=== PATIENT | male | born 1950 | race Caucasian/White ===

== ENCOUNTER 2016-09-13 03:08 | Observation (INO) | payer OTHER, MEDICAID ==
[2016-09-13] VITALS (9 sets, daily range): BP systolic 126–172; BP diastolic 60–92; PULSE 68–91; RESP 16–18; TEMP 98.5; Ht 162.6 cm; Wt 69.8 kg
[~2016-09-13] VITALS: Ht 162.6 cm; Wt 69.8 kg
[~2016-09-13 03:08] MED LIST: ASPI325T4 PO; ATEN-51 PO; BENA20TA48 PO; LORA-441 PO; METO25TA7 PO; OMEP20CA9 PO; ONDA4TAB35 PO; ONDA4TAB8 PO; RANI150T9 PO
[2016-09-13] MEDS ORDERED: SOD CHLORIDE 0.9% 500 ML IV STA (04:25)
[2016-09-13] MEDS ORDERED: TRAZ50TA18 PO (04:30)
[2016-09-13] MEDS ORDERED: ALPRAZOLAM 0.25 MG TAB PO ONE (04:30)
[2016-09-13] MEDS ORDERED: ALPR0.5T PO (04:30)
[2016-09-13 05:08] LABS: ADD SCAN DIFF NO
[2016-09-13 05:10] LABS: BASOPHIL # 0.1 10^3/ul (0.0-0.1); BASOPHILS % 0.8 % (0.0-2.0); EOSINOPHILS # 0.1 10^3/ul (0.0-0.5); EOSINOPHILS % 1.9 % (0.0-7.0); HEMATOCRIT 42.6 % (42.0-52.0); HEMOGLOBIN 14.9 g/dl (14.0-18.0); LYMPHOCYTES # 2.4 10^3/ul (0.8-2.9); LYMPHOCYTES % 36.3 % (15.0-51.0); MEAN CORPUSCULAR HEMOGLOBIN 30.5 pg (29.0-33.0); MEAN CORPUSCULAR VOLUME 87.3 fl (82.0-101.0); MEAN PLATELET VOLUME 11.3 fl (7.4-10.4); MONOCYTE # 0.6 10^3/ul (0.3-0.9); MONOCYTES % 8.8 % (0.0-11.0); NEUTROPHIL # 3.4 10^3/ul (1.6-7.5); PLATELET COUNT 207 10^3/UL (140-415); RED BLOOD COUNT 4.88 10^6/ul (4.70-6.10); RED CELL DISTRIBUTION WIDTH 12.7 % (11.5-14.5); WHITE BLOOD COUNT 6.5 10^3/ul (4.8-10.8)
[2016-09-13 05:12] LABS: ADD UMIC YES; UR BILIRUBIN (Dip) NEGATIVE (NEGATIVE); UR BLOOD (Dip) TRACE (NEGATIVE); UR CLARITY CLEAR (CLEAR); UR COLOR LT. YELLOW (YELLOW); UR GLUCOSE (Dip) NEGATIVE (NEGATIVE); UR KETONES (Dip) NEGATIVE (NEGATIVE); UR LEUKOCYTE ESTERASE (Dip) NEGATIVE (NEGATIVE); UR NITRITE (Dip) NEGATIVE (NEGATIVE); UR TOTAL PROTEIN (Dip) NEGATIVE (NEGATIVE); UR UROBILINOGEN (Dip) 0.2 E.U./dL (0.1-1.0)
[2016-09-13 05:23] LABS: UR SQUAMOUS EPITHELIAL CELL RARE; URINE RBCS 0-2 /HPF (0)
[2016-09-13 05:24] LABS: UR BACTERIA RARE
[2016-09-13 05:33] LABS: INR 1.01; PROTIME 13.3 Sec (12.2-14.2)
[2016-09-13 05:38] LABS: ANION GAP 16 (8-16); BLOOD UREA NITROGEN 11 mg/dl (7-20); CALCIUM 9.2 mg/dl (8.4-10.2); CARBON DIOXIDE 25 mmol/L (21-31); CHLORIDE 107 mmol/L (97-110); CREATININE 0.89 mg/dl (0.61-1.24); GLUCOSE 114 mg/dl (70-220); SODIUM 144 mmol/L (135-144)
[2016-09-13 05:55] LABS: TROPONIN-I < 0.012 ng/ml (0.00-0.12)
--- NOTE | 2016-09-13 06:04 | RADRPT ---
PROCEDURE: CT BRAIN WITHOUT CONTRAST CLINICAL INDICATION: 65-year-old male with right-sided numbness. TECHNIQUE: The study was performed utilizing Cognitive Code VCT 64-slice CT scanner. Direct axial sections were obtained from the foramen magnum to the vertex without the use of intravenous contrast material. Sagittal and coronal reformations were obtained. One or more the following dose reduction techniques were utilized: automated exposure control, adjustment of the mA and/or kV according to p atient's size or use of iterative reconstruction technique. The images were viewed on a PACS worksta tion. CTD/vol = 44.8 mGy; Total Exam DLP = 630.2 mGy-cm. COMPARISON: CT brain September 17, 2013. FINDINGS: There is mild degree of diffuse cortical and central atrophy with compensatory ventricular enlargeme nt. There is no evidence for mass effect or midline shift. There are periventricular and deep whit e matter areas of decreased density consistent with microangiopathic ischemic changes. There is a fo rodney area of encephalomalacia within the right superior frontal deep white matter on axial image 2-20 consistent with a prior infarct which was present previously. There has been interval development o f a old lacunar infarct within the left putamen on axial image 2-12. There is no evidence for acute intra or extra-axial blood. Calcifications are seen within the intracranial carotid arteries bilater ally. The bony calvarium is intact. The partially visualized paranasal sinuses and mastoid air cells are without significant abnormal soft tissue. IMPRESSION: 1. Mild diffuse atrophy. 2. Extensive microangiopathic ischemic changes. 3. Focal right frontal deep white matter infarct which was present previously. 4. Old left basal ganglia lacunar type infarct which has developed in the interval. 5. Vascular calcifications. .Ronnie Ward MD, MD Date Time Electronically viewed and signed by .Ronnie Ward MD, MD on 09/13/2016 06:04 .M/
--- NOTE | 2016-09-13 06:05 | RADRPT ---
PROCEDURE: CHEST - 1 VIEW CLINICAL INDICATION: 65-year-old male with change in mental status. TECHNIQUE: A single frontal AP portable view of the chest was performed. The images were reviewed on a PACS workstation. COMPARISON: Chest x-ray November 25, 2014. FINDINGS: The cardiomediastinal silhouette is within normal limits without significant interval change. The t horacic aortic arch is calcified with an ectatic descending thoracic aorta. Chronic lung changes ar e present. There is no evidence for an infiltrate. There is no evidence for congestive heart failu re. There is no evidence for pneumothorax. The osseous structures are intact. IMPRESSION: 1. Calcified thoracic aortic arch. 2. Chronic lung changes. .Ronnie Ward MD, MD Date Time Electronically viewed and signed by .Ronnie Ward MD, on 09/13/2016 06:05 .M/
[2016-09-13] MEDS ORDERED: ASPIRIN 325 MG TAB PO ONE (06:30)
--- NOTE | 2016-09-13 06:30 | ERA ---
ER Documentation Chief Complaint Date/Time DATE: 09/13/16 TIME: 06:27 Chief Complaint Right arm numbness, felt like it was asleep. HPI This 65-year-old male presents emergency room for sudden onset right arm numbness, right hand weakness and right leg weakness that made it difficult for him to walk lasting 20 minutes. Symptoms slowly resolved after that. He denies having any slurred speech or confusion at that time. He suffers from hypertension and cholesterolemia. He has no diabetes. Has not had fevers and chills recently. Denies chest pain and nausea per ROS All systems reviewed and are negative except as per history of present illness. Medications Home Meds Active Scripts Trazodone Hcl* (Trazodone Hcl*) 50 Mg Tablet, 50 MG PO QHS, #5 TAB Prov:NAOMYSIDNEYNELSON DO 09/13/16 Alprazolam* (Xanax*) 0.5 Mg Tab, 0.5 MG PO QHS Y for INSOMNIA, #10 TAB Prov:NAOMYNELSON DO 09/13/16 Ondansetron Hcl* (Zofran* ODT) 4 mg -ODT Tab.disper, 4 MG PO Q8 Y for NAUSEA AND /OR VOMITING, #30 TAB Prov:DREW GARCÍA ESTATE ADMINISTRATOR 11/12/15 Omeprazole* (Prilosec*) 20 Mg Capsule.dr, 20 MG PO DAILY, #30 CAP Prov:DREW GARCÍA NP 11/12/15 Ondansetron Hcl* (Zofran*) 4 Mg Tablet, 4 MG PO Q8H Y for NAUSEA AND/OR VOMITING , #10 TAB Prov:KHALIF POOLE 03/29/15 Ranitidine Hcl* (Zantac*) 150 Mg Tablet, 150 MG PO BID Y for GASTROINTESTINAL UPSET, #30 TAB Prov:KHALIF POOLE 03/29/15 Lorazepam* (Ativan*) 0.5 Mg Tablet, 0.5 MG PO Q8H Y for ANXIETY, #10 TAB Prov:STAN DAWKINS DO 11/25/14 Aspirin* (Aspirin*) 325 Mg Tablet, 325 MG PO DAILY, #30 TAB Prov:SATN DAWKINS DO 11/25/14 Reported Medications Metoprolol Succinate* (Toprol XL*) 25 Mg Tab.sr.24h, 25 MG PO DAILY, #60 03/29/15 Benazepril Hcl* (Benazepril Hcl*) 20 Mg Tablet, 20 MG PO DAILY, #60 03/29/15 Atenolol* (Atenolol*) 25 Mg Tablet, 25 MG PO DAILY, TAB 11/25/14 Allergies Allergies: Coded Allergies: No Known Allergy (Unverified , 09/12/13) PMhx/Soc History of Surgery: No Anesthesia Reaction: No Hx Neurological Disorder: No Hx Respiratory Disorders: No Hx Cardiac Disorders: Yes (HTN) Hx Psychiatric Problems: No Hx Miscellaneous Medical Probl: No Hx Alcohol Use: No Hx Substance Use: No Hx Tobacco Use: No Smoking Status: Never smoker Physical Exam Vitals Vital Signs Date Time Temp Pulse Resp B/P Pulse Ox O2 Delivery O2 Flow Rate FiO2 09/13/16 05:49 62 20 144/92 98 Room Air 09/13/16 03:15 98.2 91 18 178/98 98 Physical Exam Const: [] No distress Head: Atraumatic Eyes: Normal Conjunctiva, PRL, EOMI ENT: Normal External Ears, Nose and Mouth. Neck: Full range of motion..~ No meningismus. Resp: Clear to auscultation bilaterally Cardio: Regular rate and rhythm, no murmurs Abd: Soft, non tender, non distended. Normal bowel sounds Skin: No petechiae or rashes Back: No midline or flank tenderness Ext: No cyanosis, or edema Neur: Awake and alert and oriented 3, cranial nerves II through XII intact, no cerebellar deficits, normal gait. NIH equals 0 Psych: Normal Mood and Affect Result Diagram: 09/13/1644609/13/16446 Results 24 hrs Laboratory Tests Test 09/13/16 04:44 09/13/16 04:47 Bedside Glucose 109mg/dL White Blood Count 6.510^3/ul Red Blood Count 4.8810^6/ul Hemoglobin 14.9g/dl Hematocrit 42.6% Mean Corpuscular Volume 87.3fl Mean Corpuscular Hemoglobin 30.5pg Mean Corpuscular Hemoglobin Concent 35.0g/dl Red Cell Distribution Width 12.7% Platelet Count 85536^3/UL Mean Platelet Volume 11.3fl Neutrophils % 52.0% Lymphocytes % 36.3% Monocytes % 8.8% Eosinophils % 1.9% Basophils % 0.8% Nucleated Red Blood Cells % 0.0/100WBC Neutrophils # 3.410^3/ul Lymphocytes # 2.410^3/ul Monocytes # 0.610^3/ul Eosinophils # 0.110^3/ul Basophils # 0.110^3/ul Nucleated Red Blood Cells # 0.010^3/ul Prothrombin Time 13.3Sec Prothrombin Time Ratio 1.0 INR International Normalized Ratio 1.01 Activated Partial Thromboplast Time Pending Urine Color LT. YELLOW Urine Clarity CLEAR Urine pH 5.5 Urine Specific [place] 1.015 Urine Ketones NEGATIVE Urine Nitrite NEGATIVE Urine Bilirubin NEGATIVE Urine Urobilinogen 0.2 E.U./dL Urine Leukocyte Esterase NEGATIVE Urine Microscopic RBC 0-2/HPF Urine Microscopic WBC 0-2/HPF Urine Squamous Epithelial Cells RARE Urine Bacteria RARE Urine Hemoglobin TRACE Urine Glucose NEGATIVE% Urine Total Protein NEGATIVE Sodium Level 144mmol/L Potassium Level 4.0mmol/L Chloride Level 107mmol/L Carbon Dioxide Level 25mmol/L Anion Gap 16 Blood Urea Nitrogen 11mg/dl Creatinine 0.89mg/dl Glucose Level 114mg/dl Calcium Level 9.2mg/dl Troponin I < 0.012ng/ml Current Medications Medications (Trade) Dose Ordered Sig/Saleem Route PRN Reason Start Time Stop Time Status Last Admin Dose Admin Sodium Chloride (NS) 500 ml @ 500 mls/hr Q1H STAT IV 09/13/16 04:25 09/13/16 05:24 DC 09/13/16 05:07 Alprazolam (Xanax) 0.25 mg ONCE ONCE PO 09/13/16 04:30 09/13/16 04:31 DC 09/13/16 05:06 Procedures/MDM Symptoms concerning for a TIA in a patient has 2 prior strokes on his CAT scan. Stable in the emergency room. He was given 325 mg aspirin on his CAT scan returned with no hemorrhage. Vital signs otherwise stable in the emergency room. Going to be admitted to telemetry for further monitoring, likely neurological consult and MRI. Dr. valle is admitting. Registration was unable to find patient's insurance after calling multiple places and decided he should be admitted to panel. EKG interpretation: Normal sinus rhythm, rate of 79, normal axis, no ST or T- wave changes concerning for acute ischemia, normal intervals, nonspecific T- wave abnormality. quality assurance monitor interpretation: Normal sinus rhythm without arrhythmia Chest x-ray interpretation: I see no acute process, no widened mediastinum, no pulmonary edema, no pneumothorax, no fractures Head CT interpretation: Evidence of 2 prior strokes with no current hemorrhage, no mass-effect no midline shift no skull fracture. Departure Diagnosis: Primary Impression: Transient ischemic attack Condition: Stable NELSON MORALEZ DO Sep 13, 2016 06:30
[2016-09-13] MEDS ORDERED: LORAZEPAM 2 MG INJ IV PRN (07:00)
[2016-09-13] MEDS ORDERED: SOD CHLORIDE 0.9% 1,000 ML IV SCH (08:50)
[2016-09-13] MEDS ORDERED: ONDANSETRON 4 MG INJ IV PRN ×2 (09:00→12:00)
[2016-09-13] MEDS ORDERED: ACETAMINOPHEN 325 MG TAB PO PRN ×2 (09:00→12:00)
[2016-09-13] MEDS ORDERED: morphine 2 MG INJ IV PRN (12:00)
[2016-09-13] MEDS ORDERED: DOCUSATE SODIUM 100 MG CAP PO PRN (12:00)
[2016-09-13] MEDS ORDERED: NACL 0.9% 3 ML SYG IV SCH (12:00)
[2016-09-13] MEDS ORDERED: ZOLPIDEM 5 MG TAB PO PRN (12:00)
[2016-09-13] MEDS ORDERED: hydrALAzine 20 MG INJ IV PRN (12:00)
[2016-09-13] MEDS ORDERED: HYDROCODONE/APAP (5/325) TAB PO PRN (12:00)
[2016-09-13] MEDS: LISINOPRIL 10 MG TAB PO SCH (12:51)
--- NOTE | 2016-09-13 14:05 | HP ---
DATE OF ADMISSION: 09/13/2016 CHIEF COMPLAINT: Right arm numbness. HISTORY OF PRESENT ILLNESS: The patient is a 65-year-old male with a history of hypertension, but n ot on any medications. The patient presents with 10 minutes of numbness in his right arm, states th at his whole arm felt weak once he got out of bed. He states that this has never happened before in the past. He does state that he suffers from insomnia and he currently denies any numbness or weak ness. He denies having any weakness at any point. The patient has no other complaints at this time . PAST MEDICAL HISTORY: Hypertension, not on any medications, and insomnia. PAST SURGICAL HISTORY: Denies. HOME MEDICATIONS: NO KNOWN DRUG ALLERGIES. FAMILY HISTORY: Diabetes. SOCIAL HISTORY: Denies any alcohol, tobacco, or drug abuse. REVIEW OF SYSTEMS: A 12-point review of systems negative except as in HPI. PHYSICAL EXAMINATION: VITAL SIGNS: Temperature is 98.5, pulse 78, respiration is 18, BP is 130/89, saturation 99% on room air. GENERAL: No acute distress, alert and oriented. HEENT: Normocephalic, atraumatic. Pupils equal, round, reactive to light. LUNGS: Clear to auscultation. CARDIOVASCULAR: Regular rate and rhythm. ABDOMEN: Nondistended, nontender, soft. EXTREMITIES: No clubbing, cyanosis, or edema. NEUROLOGIC: No focal deficits noted. LABORATORIES: CBC is within normal limits. Chemistry within normal limits. A1c is 6.4. Troponins are negative. INR is 1.01. UA is within normal limits. DIAGNOSTICS: Chest x-ray shows calcified thoracic aortic arch, chronic lung changes. Brain CT show s mild diffuse atrophy, extensive microangiopathic ischemic changes, focal right frontal deep white matter infarct which was present previously, old left basal ganglia lacunar type infarct which has d eveloped an interval and vascular calcifications. ASSESSMENT AND PLAN: 1. Acute right arm numbness, likely secondary to a new lacunar infarct within the left basal gangli a. 2. Patient's symptoms of right arm numbness have now resolved, lacunar infarct. Etiology is likely secondary to uncontrolled hypertension. The patient's blood pressure is now rising in house. Will start the patient on p.o. blood pressure medications. Will titrate up as needed. 3. History of cerebrovascular accident. The patient did not report any CVA during history, but the patient has a right-sided infarct noted on CT which was noted on the previous CT of the brain. The patient has no reported residual weakness. 4. Hypertension. Once again, patient is not taking any medications, and he needs to be started on medications while in house as his BP is climbing. Will start the patient on lisinopril and titrate up as needed. 5. Prediabetes. The patient's A1c is 6.4. Lifestyle changes will be advised. 6. Prophylaxis. Lovenox. Dictated By: JOSE LEON MD BS/NTS Conf#: [id number] DID#: [id number]
--- NOTE | 2016-09-13 14:13 | RADRPT ---
PROCEDURE: US Carotids. CLINICAL INDICATION: bruit , CVA TECHNIQUE: Multiple sonographic of the carotid bifurcation region and vertebral arteries were obta ined utilizing hardin scale, duplex and color-flow imaging. The images were reviewed on a PACS worksta tion. COMPARISON: No prior studies are available for comparison. FINDINGS: Evaluation of the right carotid bifurcation region reveals mild calcific atherosclerotic disease. Evaluation of the left carotid bifurcation region reveals mild calcific atherosclerotic disease. The bilateral subclavian arteries are patent with normal wave forms. There is antegrade flow within the vertebral arteries bilaterally. RIGHT CAROTID MEASUREMENTS: Common Carotid Gnshpd95.2 (cm/sec) Internal Carotid Artery - gzurugqk46.4 (cm/sec) Internal Carotid Artery - mid38.2 (cm/sec) Internal Carotid Artery - eweodb15 (cm/sec) Internal Carotid/Common Carotid0.97 LEFT CAROTID MEASUREMENTS: Common Carotid Ppioko90.8 (cm/sec) Internal Carotid Artery - fupfxfcz41.9 (cm/sec) Internal Carotid Artery - mid38.1 (cm/sec) Internal Carotid Artery - rovben07.6 (cm/sec) Internal Carotid/Common Carotid1.26 RPTAT: AA IMPRESSION: No evidence for hemodynamically significant stenosis in the bilateral internal carotid arteries - va lidated velocity measurements with angiographic measurements, velocity criteria are extrapolated fro m diameter data as defined by the Society of Radiologists in Ultrasound Consensus Conference Radiolo gy 2003; 229;340-346. This study does indirectly reference the measurement of the distal ICA diamet er as the denominator for stenosis measurement. Normal antegrade flow in the vertebral arteries bilaterally. .Rogers Fisher MD, Date Time Electronically viewed and signed by .Rogers Fisher MD, MD on 09/13/2016 14:13 .S/
--- NOTE | 2016-09-13 15:42 | CONS ---
Date/Time of Note Date/Time of Note DATE: 09/13/16 TIME: 15:37 Assessment/Plan Assessment/Plan Chief Complaint/Hosp Course 65 yo male with history of HTN not previously on meds admitted with left arm numbness resolved, admitted for work up lacunar infarction. recommend: MRI Brain without contrast, MRA Head without contrast ASA 81 mg maintain normotension SBP<130/80 for lacunar type strokes check FLP HBA1C for optimization of secondary risk factors carotid duplex is negative ECHO w bubble study DVT ppx no PT/OT needs at this time Problems: Consultation Date/Type/Reason Admit Date/Time Sep 13, 2016 at 08:51 Date of Consultation: Sep 13, 2016 Type of Consultation: Neurology Reason for Consultation CVA Referring Provider: JOSE LEON of Present Illness 65 yo male with history of hypertension not on medications, prior admission for ETOH abuse admitted with 10 mins of numbness in right arm and sensation of weakness. Since admission he reports improvement, denies visual issues, no facial droop or dysarthria, no difficulty with coordination or ambulation. Symptoms have now resolved. CTH shows diffuse atrophy, ischemic changes, focal right white matter infarct, old basal ganglia infarct on left no complaints Social History Smoking Status: Never smoker Exam/Review of Systems Vital Signs Vitals Vital Signs Date Time Temp Pulse Resp B/P Pulse Ox O2 Delivery O2 Flow Rate FiO2 09/13/16 15:31 126/60 09/13/16 12:12 68 09/13/16 11:55 98.4 18 96 09/13/16 10:59 Room Air Exam Constitutional: alert, oriented, well developed Psych: no complaints Head: atraumatic, normocephalic Neurological: DIRECTOR OF STUDENT AFFAIRS II-XII intact, DTR's symmetric, nl mental status, nl speech, nl strength Results Result Diagram: 09/13/167 09/13/16446 Results 24 hrs Laboratory Tests Test 09/13/16 04:44 09/13/16 04:47 Bedside Glucose 109 White Blood Count 6.5 Red Blood Count 4.88 Hemoglobin 14.9 Hematocrit 42.6 Mean Corpuscular Volume 87.3 Mean Corpuscular Hemoglobin 30.5 Mean Corpuscular Hemoglobin Concent 35.0 Red Cell Distribution Width 12.7 Platelet Count 207 Mean Platelet Volume 11.3 #H Neutrophils % 52.0 Lymphocytes % 36.3 Monocytes % 8.8 Eosinophils % 1.9 Basophils % 0.8 Nucleated Red Blood Cells % 0.0 Neutrophils # 3.4 Lymphocytes # 2.4 Monocytes # 0.6 Eosinophils # 0.1 Basophils # 0.1 Nucleated Red Blood Cells # 0.0 Prothrombin Time 13.3 Prothrombin Time Ratio 1.0 INR International Normalized Ratio 1.01 Activated Partial Thromboplast Time 30.0 Urine Color LT. YELLOW Urine Clarity CLEAR Urine pH 5.5 Urine Specific [place] 1.015 Urine Ketones NEGATIVE Urine Nitrite NEGATIVE Urine Bilirubin NEGATIVE Urine Urobilinogen 0.2 E.U./dL Urine Leukocyte Esterase NEGATIVE Urine Microscopic RBC 0-2 Urine Microscopic WBC 0-2 Urine Squamous Epithelial Cells RARE Urine Bacteria RARE Urine Hemoglobin TRACE Urine Glucose NEGATIVE Urine Total Protein NEGATIVE Sodium Level 144 Potassium Level 4.0 Chloride Level 107 Carbon Dioxide Level 25 Anion Gap 16 Blood Urea Nitrogen 11 Creatinine 0.89 Glucose Level 114 Hemoglobin A1c 6.4 H Calcium Level 9.2 Troponin I < 0.012 Medications Medications Current Medications Lorazepam 2 mg 2 mg PRN PRN IV MRI phobia; Start 09/13/16 at 07:00 Sodium Chloride (NS) 1,000 ml @ 80 mls/hr [id number] IV ; Start 09/13/16 at 08:50 ; Stop 09/13/16 at 21:19 Ondansetron HCl (Zofran Inj) 4 mg Q6H PRN IV NAUSEA AND/OR VOMITING; Start 02/19 at 12:00 Acetaminophen (Tylenol Tab) 650 mg Q6H PRN PO PAIN LEVEL 1-3 OR FEVER; Start at 12:00 Acetaminophen/ Hydrocodone Bitart ([place] (5/325)) 1 tab Q6H PRN PO MODERATE PAIN LEVEL 4-6; Start 09/13/16 at 12:00 Morphine Sulfate (morphine) 2 mg Q4H PRN IV SEVERE PAIN LEVEL 7-10; Start 09/13 at 12:00 Docusate Sodium (Colace) 100 mg Q12H PRN PO CONSTIPATION; Start 09/13/16 at 12: 00 Zolpidem Tartrate (Ambien) 5 mg QHS PRN PO SLEEP; Start 09/13/16 at 12:00 Enoxaparin Sodium (Lovenox) 40 mg DAILY SC ; Start 09/14/16 at 09:00 Lisinopril (Zestril) 10 mg DAILY PO Last administered on 09/13/16 12:51; Admin Dose 10 MG; Start 09/13/16 at 12:00 Hydralazine HCl (Apresoline) 10 mg Q4H PRN IV SBP>170 Last administered on 09/13 13:46; Admin Dose 10 MG; Start 09/13/16 at 12:00 Trazodone HCl (Desyrel) 50 mg QHS PO ; Start 09/13/16 at 21:00 LEONOR MOSHER MD Sep 13, 2016 15:42
--- NOTE | 2016-09-13 17:01 | RADRPT ---
PROCEDURE: MR Brain noncontrast. CLINICAL INDICATION: Stroke. TECHNIQUE: Multiplanar multisequence noncontrast MRI of the brain was performed. COMPARISON: Noncontrast CT of the head from September 13, 2016. FINDINGS: There is minimal generalized cerebral volume loss. There are extensive periventricular scattered bilateral subcortical T2 hyperintensities suggesting c hronic microvascular ischemic changes. There is a small chronic right frontal centrum semiovale lacu socorro infarction. There is a chronic left basal ganglia lacunar infarction. There is no acute infarction. There is no intracranial hemorrhage or extra-axial fluid collection. There is no mass effect. There is no midline shift. The brainstem is within normal limits. The posterior fossa is unremarkable. The normal intracranial, intravascular flow voids are preserved. The visualized paranasal sinuses are well aerated. The orbits are grossly unremarkable. There is no destructive osseous lesion. IMPRESSION: 1. No acute infarction or intracranial hemorrhage. 2. Advanced chronic microvascular ischemic changes. 3. Minimal generalized cerebral volume loss. 4. Small chronic right frontal centrum semiovale lacunar infarction. 5. Chronic left basal ganglial lacunar infarction. Further findings as detailed above. RPTAT: HVF .Adriano Machado MD, MD Date Time Electronically viewed and signed by .Adriano Machado MD, on 09/13/2016 17:01 .F/
--- NOTE | 2016-09-13 18:01 | RADRPT ---
PROCEDURE: MRA Head noncontrast. CLINICAL INDICATION: Stroke. TECHNIQUE: MRA of the head was performed with 3-D [id number] technique without contrast. MIP r econstructions were provided. COMPARISON: There are no similar studies submitted for comparison. MRI of the brain from the same d ay. FINDINGS: Evaluation is moderately limited due to motion degradation. Carotid arteries: Patent bilaterally without evidence of stenosis. Anterior cerebral arteries: Patent bilaterally without evidence of stenosis. Middle cerebral arteries: There is apparent severe multifocal left M1 middle cerebral artery stenosi s however evaluation is limited due to motion. There is no definite right middle cerebral artery st enosis. Posterior cerebral arteries: Patent bilaterally without evidence of stenosis. Anterior communicating artery: Present. Posterior communicating arteries: Not visualized bilaterally. Basilar artery: Patent without evidence of stenosis. Vertebral arteries: Patent bilaterally without evidence of stenosis. Vertebral artery dominance: Left. Aneurysm: No aneurysm is identified. IMPRESSION: Evaluation is moderately limited due to motion degradation. 1. Apparent severe multifocal left M1 middle cerebral artery stenosis however evaluation is limited due to motion. This could be confirmed with CTA of the head as clinically warranted given limitatio ns. 2. No definite evidence of aneurysm given limitations. Further findings as detailed above. RPTAT: HVF .Adriano Machado MD, MD Date Time Electronically viewed and signed by .Adriano Machado MD, on 09/13/2016 18:01 .F/
[2016-09-13] MEDS ORDERED: traZODone 50 MG TAB PO SCH (21:00)
[2016-09-14] VITALS (8 sets, daily range): BP systolic 107–140; BP diastolic 65–83; PULSE 67–84; RESP 16–19
[2016-09-14 05:43] LABS: ADD SCAN DIFF NO
[2016-09-14 06:03] LABS: BASOPHIL # 0.1 10^3/ul (0.0-0.1); BASOPHILS % 0.8 % (0.0-2.0); EOSINOPHILS # 0.1 10^3/ul (0.0-0.5); EOSINOPHILS % 1.7 % (0.0-7.0); HEMATOCRIT 42.6 % (42.0-52.0); HEMOGLOBIN 14.6 g/dl (14.0-18.0); LYMPHOCYTES # 2.6 10^3/ul (0.8-2.9); MEAN CORPUSCULAR HEMOGLOBIN 30.1 pg (29.0-33.0); MEAN CORPUSCULAR HGB CONC 34.3 g/dl (32.0-37.0); MEAN CORPUSCULAR VOLUME 87.8 fl (82.0-101.0); MEAN PLATELET VOLUME 11.6 fl (7.4-10.4); MONOCYTE # 0.6 10^3/ul (0.3-0.9); MONOCYTES % 7.8 % (0.0-11.0); NEUTROPHIL # 4.2 10^3/ul (1.6-7.5); NEUTROPHILS % 55.6 % (39.0-77.0); PLATELET COUNT 190 10^3/UL (140-415); RED BLOOD COUNT 4.85 10^6/ul (4.70-6.10); RED CELL DISTRIBUTION WIDTH 13.2 % (11.5-14.5); WHITE BLOOD COUNT 7.5 10^3/ul (4.8-10.8)
[2016-09-14 06:35] LABS: CHOL/HDL RATIO 4.5 RATIO; CREATININE 1.1 mg/dl (0.61-1.24); MAGNESIUM 2.2 mg/dl (1.7-2.5); PHOSPHORUS 4.3 mg/dl (2.5-4.9); POTASSIUM 4.1 mmol/L (3.5-5.1)
[2016-09-14 07:04] LABS: T3 UPTAKE 36.1 % (23.5-40.5)
[2016-09-14] MEDS: LISINOPRIL 10 MG TAB PO SCH (08:14)
[2016-09-14] MEDS ORDERED: ENOXAPARIN 40 MG/0.4 ML SYG SC SCH (09:00)
[2016-09-14] MEDS ORDERED: ASPIRIN (EC) 81 MG TAB PO SCH (09:00)
--- NOTE | 2016-09-14 12:30 | CONS ---
Date/Time of Note Date/Time of Note DATE: 09/14/16 TIME: 12:26 Consult Date/Type/Reason Admit Date/Time Sep 13, 2016 at 08:51 Initial Consult Date 09/13/16 Type of Consultation: Neurology Reason for Consultation left arm numbness Ordering Provider: JOSE LEON Subjective no complaints worked with PT well this am MRI negative for acute infarction suggestive of Left M1 stenosis Objective Vital Signs Date Time Temp Pulse Resp B/P Pulse Ox O2 Delivery O2 Flow Rate FiO2 09/14/16 12:15 69 09/14/16 11:58 98.0 17 116/76 97 09/13/16 10:59 Room Air Intake and Output 09/13/16 09/13/16 09/14/16 15:00 23:00 07:00 Intake Total 240 ml Balance 240 ml Results/Medications Result Diagram: 09/14/16 0520 09/14/16 0520 Results 24 hrs Laboratory Tests Test 09/14/16 05:20 White Blood Count 7.5 Red Blood Count 4.85 Hemoglobin 14.6 Hematocrit 42.6 Mean Corpuscular Volume 87.8 Mean Corpuscular Hemoglobin 30.1 Mean Corpuscular Hemoglobin Concent 34.3 Red Cell Distribution Width 13.2 Platelet Count 190 Mean Platelet Volume 11.6 H Neutrophils % 55.6 Lymphocytes % 34.0 Monocytes % 7.8 Eosinophils % 1.7 Basophils % 0.8 Nucleated Red Blood Cells % 0.0 Neutrophils # 4.2 Lymphocytes # 2.6 Monocytes # 0.6 Eosinophils # 0.1 Basophils # 0.1 Nucleated Red Blood Cells # 0.0 Sodium Level 141 Potassium Level 4.1 Chloride Level 111 H Carbon Dioxide Level 22 Anion Gap 12 Blood Urea Nitrogen 16 Creatinine 1.10 Glucose Level 119 Calcium Level 9.0 Phosphorus Level 4.3 Magnesium Level 2.2 Triglycerides Level 176 H Cholesterol Level 171 LDL Cholesterol, Calculated 98 HDL Cholesterol 38 Cholesterol/HDL Ratio 4.5 Free Thyroxine Index 3.07 Thyroxine (T4) 8.5 Triiodothyronine (T3) Uptake 36.1 Medications Current Medications Lorazepam (Ativan) 2 mg PRN PRN IV MRI phobia Last administered on 09/13/16t 16 :17; Admin Dose 2 MG; Start 09/13/16 at 07:00 Ondansetron HCl (Zofran Inj) 4 mg Q6H PRN IV NAUSEA AND/OR VOMITING; Start 02/19 at 12:00 Acetaminophen (Tylenol Tab) 650 mg Q6H PRN PO PAIN LEVEL 1-3 OR FEVER; Start at 12:00 Acetaminophen/ Hydrocodone Bitart ([place] (5/325)) 1 tab Q6H PRN PO MODERATE PAIN LEVEL 4-6; Start 09/13/16 at 12:00 Morphine Sulfate (morphine) 2 mg Q4H PRN IV SEVERE PAIN LEVEL 7-10; Start 09/13 at 12:00 Docusate Sodium (Colace) 100 mg Q12H PRN PO CONSTIPATION; Start 09/13/16 at 12: 00 Zolpidem Tartrate (Ambien) 5 mg QHS PRN PO SLEEP; Start 09/13/16 at 12:00 Enoxaparin Sodium (Lovenox) 40 mg DAILY SC Last administered on 09/14/16 08:19 ; Admin Dose 40 MG; Start 09/14/16 at 09:00 Lisinopril (Zestril) 10 mg DAILY PO Last administered on 09/14/16 08:14; Admin Dose 10 MG; Start 09/13/16 at 12:00 Hydralazine HCl (Apresoline) 10 mg Q4H PRN IV SBP>170 Last administered on 09/13 13:46; Admin Dose 10 MG; Start 09/13/16 at 12:00 Trazodone HCl (Desyrel) 50 mg QHS PO Last administered on 09/13/16 21:47; Admin Dose 50 MG; Start 09/13/16 at 21:00 Aspirin (Halfprin) 81 mg DAILY PO Last administered on 09/14/16 09:11; Admin Dose 81 MG; Start 09/14/16 at 09:00 Atorvastatin Calcium (Lipitor) 80 mg HS PO ; Start 09/14/16 at 21:00 Assessment/Plan Chief Complaint/Hosp Course 65 yo male with history of HTN not previously on meds admitted with left arm numbness resolved, admitted for work up lacunar infarction. recommend: MRI Brain shows chronic infarcts, MRA Head suggestive of Left MCA stenosis ASA 81 mg will also add Plavix 75 mg daily for suspected intracranial atherosclerosis recommend continue on dual antiplatelet for total of 90 days then continue Plavix 75 mg daily after maintain normotension SBP<130/80 for lacunar type strokes Lipitor 40 mg daily HBA1C at goal DVT ppx no PT/OT needs at this time dc planning and outpatient neurology follow up Problems: LEONOR MOSHER MD Sep 14, 2016 12:30
--- NOTE | 2016-09-14 17:01 | RADRPT ---
Echocardiogram Report Patient Name: VIVIANE HURST Gender: Male Date: 1950 Study Date: 14-Sep-2016 Dietitian Research: Guillaume Mitchell [facility] Location: [id number] Ref. Physician: JOSE LEON Quality: Good Procedures: Transthoracic echocardiogram with complete 2D, M-Mode, and doppler examination. Indications: Cerebrovascular Accident. 2D/M Mode Doppler Measurement Value Normal Ranges Measurement Value Normal Ranges LVIDd 2D 4.7 3.5 - 5.6 cm AV Peak Doc 1.5 m/sec LVIDs 2D 2.5 2.1 - 4.1 cm AV Peak PG 9.0 mmHg FS 2D 46.4 % AI Peak PG 38.0 mmHg LVPWd 2D 1.1 0.6 - 1.1 cm AI Peak Doc 3.1 m/sec IVSd 2D 1.3 0.6 - 1.1 cm AI PHT 652.0 msec IVS/LVPW 2D 1.2 LVOT Peak Doc 0.7 m/sec AoR Diam 2D 3.3 2.0 - 3.7 cm LVOT Peak PG 2.0 mmHg LA/Ao 2D 1 0 - 1 MV E Peak Doc 0.5 m/sec EDV 2D 106.0 cm3 MV A Peak Doc 0.7 m/sec ESV 2D 16.4 cm3 MV E/A 0.7 LA Dimen 2D 3.8 2.3 - 4.0 cm MV Decel Time 211 msec MV E/A 0.7 TR Peak Doc 2.5 m/sec TR Peak PG 24.0 mmHg RVSP 32.0 mmHg Findings Left Ventricle: Normal left ventricular systolic function. Normal left ventricular cavity size. Mild concentric left ventricular hypertrophy. Ejection fraction is visually estimated at 60 %. Tissue Doppler/Mitral Doppler indices are consistent with impaired relaxation (Stage I diastolic dysfunction). Right Ventricle: Normal right ventricular size. Normal right ventricular systolic function. Left Atrium: The left atrium is normal in size. Right Atrium: The right atrium is normal in size. Mitral Valve: Normal appearance of the mitral valve. Mild mitral annular calcification. Trace mitral regurgitation. Aortic Valve: No significant aortic stenosis or insufficiency. Aortic cusps appear mildly calcified. Tricuspid Valve: Normal appearance of the tricuspid valve. Estimated peak PA systolic pressure 32 mmHg. There is mild tricuspid regurgitation. Pulmonic Valve: Normal pulmonic valve appearance. Pericardium: Normal pericardium with no significant pericardial effusion. Aorta: Normal aortic root. IVC: Normal size and no respiratory collapse consistent with elevated right atrial pressure. Conclusions 1.Normal left ventricular systolic function. Normal left ventricular cavity size. Mild concentric left ventricular hypertrophy. Ejection fraction is visually estimated at 60 %. Tissue Doppler/Mitral Doppler indices are consistent with impaired relaxation (Stage I diastolic dysfunction). 2.Normal appearance of the mitral valve. Mild mitral annular calcification. Trace mitral regurgitation. 3.Normal appearance of the tricuspid valve. Estimated peak PA systolic pressure 32 mmHg. There is mild tricuspid regurgitation. Electronically Signed By: Christian Alfaro 14-Sep-2016 17:00:51 -[id number] Patient Name: VIVIANE HURST Study Date: 14-Sep-[id number]
--- NOTE | 2016-09-14 17:14 | PDOCDIS ---
Discharge Instructions DIAGNOSIS Discharge Diagnosis: stroke CONDITION Patient Condition: Good HOME CARE INSTRUCTIONS: Diet Instructions: Low Fat /Cholesterol ACTIVITY: Activity Restrictions: Slowly Increase Activity FOLLOW UP/APPOINTMENTS Appointments Please schedule an appointment to see your regular doctor within 7 days for follow up and to discuss a referral for a sleep study Please schedule an appointment with the neurologist/stroke doctors who saw you in the hospital. TAZ MENDIOLA MD Sep 14, 2016 17:14
[2016-09-14] MEDS ORDERED: CLOP75TA28 PO (17:16)
[2016-09-14] MEDS ORDERED: ATOR80TA75 PO ×2 (17:16→17:38)
[2016-09-14] MEDS ORDERED: ASPI-664 PO (17:16)
[2016-09-14] MEDS ORDERED: LISI10TA2 PO (17:16)
--- NOTE | 2016-09-14 17:24 | DS ---
Date/Time of Note Date/Time of Note DATE: 09/14/16 TIME: 17:18 Discharge Summary Admission/Discharge Info Admit Date/Time Sep 13, 2016 at 08:51 Discharge Date/Time Final Diagnosis transient ischemic attack Patient Condition: Good Consults neurology/Dr De La Vega Procedures 6.11 NCCT Head IMPRESSION: 1. Mild diffuse atrophy. 2. Extensive microangiopathic ischemic changes. 3. Focal right frontal deep white matter infarct which was present previously. 4. Old left basal ganglia lacunar type infarct which has developed in the interval. 5. Vascular calcifications. 6.11 MRI/MRA brain IMPRESSION: Evaluation is moderately limited due to motion degradation. 1. Apparent severe multifocal left M1 middle cerebral artery stenosis however evaluation is limited due to motion. This could be confirmed with CTA of the head as clinically warranted given limitations. 2. No definite evidence of aneurysm given limitations. 6.11 carotid dopplers FINDINGS: Evaluation of the right carotid bifurcation region reveals mild calcific atherosclerotic disease. Evaluation of the left carotid bifurcation region reveals mild calcific atherosclerotic disease. The bilateral subclavian arteries are patent with normal wave forms. There is antegrade flow within the vertebral arteries bilaterally. 6.11 a1c 6.4 TTE 6.11 Conclusions 1. Normal left ventricular systolic function. Normal left ventricular cavity size. Mild concentric left ventricular hypertrophy. Ejection fraction is visually estimated at 60 %. Tissue Doppler/Mitral Doppler indices are consistent with impaired relaxation (Stage I diastolic dysfunction). 2. Normal appearance of the mitral valve. Mild mitral annular calcification. Trace mitral regurgitation. 3. Normal appearance of the tricuspid valve. Estimated peak PA systolic pressure 32 mmHg. There is mild tricuspid regurgitation. 6.11 lipids: Chemistry Test 09/13/16 04:44 09/13/16 04:47 09/14/16 05:20 Triglycerides Level 176mg/dl (0-149) Cholesterol Level 171mg/dl (100-200) LDL Cholesterol, Calculated 98mg/dl HDL Cholesterol 38mg/dl (30-78) Cholesterol/HDL Ratio 4.5RATIO Free Thyroxine Index 3.07ug/ml (0.65-3.89) Thyroxine (T4) 8.5ug/dl (5.5-11.0) Triiodothyronine (T3) Uptake 36.1% (23.5-40.5) Hx of Present Illness The patient is a 65-year-old male with a history of hypertension, but not on any medications. The patient presents with 10 minutes of numbness in his right arm, states that his whole arm felt weak once he got out of bed. He states that this has never happened before in the past. He does state that he suffers from insomnia and he currently denies any numbness or weakness. He denies having any weakness at any point. The patient has no other complaints at this time. Hospital Course 65 yo male with history of HTN not previously on meds admitted with left arm numbness resolved, admitted for work up lacunar infarction. Pt seen by neurology serivce. Workup as described above. Per neurologust, most likely etio was intracranial atherosclerosis. DAPT with asa/plavix rx'ed. Neuro rec is 90 days DAPT then plavix monotherapy after. Of note, pt with long h/o snoring. Consider PAULY eval as outpatient to aid in stroke risk reduction Tele monitoring x >24 hours without any AFib. Statin started-->atorva 40 per neuro rec. Pt started on lisinopril for BP control Pt should get ChemP and BP check with PCP within 7 days Pt seen by PT and OT, no discharge needs identified Home Meds Active Scripts Aspirin* (Aspirin* EC) 81 Mg Tablet.dr, 81 MG PO DAILY for 14 Days, #14 Prov:TAZ MENDIOLA MD 09/14/16 Lisinopril* (Lisinopril*) 10 Mg Tablet, 10 MG PO DAILY for 14 Days, #14 TAB Prov:TAZ MENDIOLA MD 09/14/16 Atorvastatin* (Atorvastatin*) 80 Mg Tablet, 80 MG PO HS for 14 Days, #14 TAB Prov:TAZ MENDIOLA MD 09/14/16 Clopidogrel Bisulfate (Clopidogrel) 75 Mg Tablet, 75 MG PO QHS for 14 Days, #14 TAB Prov:TAZ MENDIOLA MD 09/14/16 Trazodone Hcl* (Trazodone Hcl*) 50 Mg Tablet, 50 MG PO QHS, #5 TAB Prov:NELSON MORALEZ DO 09/13/16 Alprazolam* (Xanax*) 0.5 Mg Tab, 0.5 MG PO QHS Y for INSOMNIA, #10 TAB Prov:NELSON MORALEZ DO 09/13/16 Discontinued Reported Medications Metoprolol Succinate* (Toprol XL*) 25 Mg Tab.sr.24h, 25 MG PO DAILY, #60 03/29/15 Benazepril Hcl* (Benazepril Hcl*) 20 Mg Tablet, 20 MG PO DAILY, #60 03/29/15 Atenolol* (Atenolol*) 25 Mg Tablet, 25 MG PO DAILY, TAB 11/25/14 Discontinued Scripts Ondansetron Hcl* (Zofran* ODT) 4 mg -ODT Tab.disper, 4 MG PO Q8 Y for NAUSEA AND /OR VOMITING, #30 TAB Prov:DREW GARCÍA NP 11/12/15 Omeprazole* (Prilosec*) 20 Mg Capsule.dr, 20 MG PO DAILY, #30 CAP Prov:DREW GARCÍA TETRYL NITRATOR OPERATOR 11/12/15 Ondansetron Hcl* (Zofran*) 4 Mg Tablet, 4 MG PO Q8H Y for NAUSEA AND/OR VOMITING , #10 TAB Prov:KHALIF POOLE 03/29/15 Ranitidine Hcl* (Zantac*) 150 Mg Tablet, 150 MG PO BID Y for GASTROINTESTINAL UPSET, #30 TAB Prov:KHALIF POOLE 03/29/15 Lorazepam* (Ativan*) 0.5 Mg Tablet, 0.5 MG PO Q8H Y for ANXIETY, #10 TAB Prov:STAN DAWKINS DO 11/25/14 Aspirin* (Aspirin*) 325 Mg Tablet, 325 MG PO DAILY, #30 TAB Prov:STAN DAWKINS DO 11/25/14 Follow-up Plan PCP within 7 days neuro within 7 days Primary Care Provider Not On Staff Doctor Time spent on discharge: > 30 minutes Pending Labs Laboratory Tests Test 09/14/16 05:20 White Blood Count 7.510^3/ul (4.8-10.8) Red Blood Count 4.8510^6/ul (4.70-6.10) Hemoglobin 14.6g/dl (14.0-18.0) Hematocrit 42.6% (42.0-52.0) Mean Corpuscular Volume 87.8fl (82.0-101.0) Mean Corpuscular Hemoglobin 30.1pg (29.0-33.0) Mean Corpuscular Hemoglobin Concent 34.3g/dl (32.0-37.0) Red Cell Distribution Width 13.2% (11.5-14.5) Platelet Count 40843^3/UL (140-415) Mean Platelet Volume 11.6fl (7.4-10.4) Neutrophils % 55.6% (39.0-77.0) Lymphocytes % 34.0% (15.0-51.0) Monocytes % 7.8% (0.0-11.0) Eosinophils % 1.7% (0.0-7.0) Basophils % 0.8% (0.0-2.0) Nucleated Red Blood Cells % 0.0/100WBC (0.0-0.0) Neutrophils # 4.210^3/ul (1.6-7.5) Lymphocytes # 2.610^3/ul (0.8-2.9) Monocytes # 0.610^3/ul (0.3-0.9) Eosinophils # 0.110^3/ul (0.0-0.5) Basophils # 0.110^3/ul (0.0-0.1) Nucleated Red Blood Cells # 0.010^3/ul (0.0-0.0) Sodium Level 141mmol/L (135-144) Potassium Level 4.1mmol/L (3.5-5.1) Chloride Level 111mmol/L (97-110) Carbon Dioxide Level 22mmol/L (21-31) Anion Gap 12 (8-16) Blood Urea Nitrogen 16mg/dl (7-20) Creatinine 1.10mg/dl (0.61-1.24) Glucose Level 119mg/dl (70-220) Calcium Level 9.0mg/dl (8.4-10.2) Phosphorus Level 4.3mg/dl (2.5-4.9) Magnesium Level 2.2mg/dl (1.7-2.5) Triglycerides Level 176mg/dl (0-149) Cholesterol Level 171mg/dl (100-200) LDL Cholesterol, Calculated 98mg/dl HDL Cholesterol 38mg/dl (30-78) Cholesterol/HDL Ratio 4.5RATIO Free Thyroxine Index 3.07ug/ml (0.65-3.89) Thyroxine (T4) 8.5ug/dl (5.5-11.0) Triiodothyronine (T3) Uptake 36.1% (23.5-40.5) TAZ MENDIOLA MD Sep 14, 2016 17:24
[2016-09-14] MEDS ORDERED: CLOPIDOGREL 75 MG TAB PO SCH (21:00)
[2016-09-14] MEDS ORDERED: ATORVASTATIN 80 MG TAB PO SCH (21:00)
== END 2016-09-14 18:49 | disposition home or self-care (01) ==
LOC: E/R 03:08 → TEL 08:51
PROVIDERS: ADMIT Internal Medicine; ATTEND Internal Medicine
DX: G45.9 Transient cerebral ischemic attack, unspecified (principal); I10 Essential (primary) hypertension; Z79.82 Long term (current) use of aspirin; R73.03 Prediabetes; Z83.3 Family history of diabetes mellitus
CPT/HCPCS: 36415; 70450; 70544; 70551; 71010; 80048; 80061; 81001; 82962; 83036; 83735; 84100; 84436; 84479; 84484; 85025; 85610; 85730; 93005; 93306; 93880; 96372; 96374; 96375; 97163; 97166; 99285; G0378; J0360; J1650; J2060; J7030; J7040